=== PATIENT | female | born 1975 | race Caucasian/White ===

== ENCOUNTER 2019-04-16 21:09 | Emergency (ER) | payer SELFPAY ==
[~2019-04-16] VITALS: Ht 157.5 cm; Wt 73.9 kg
[2019-04-16 21:53] LABS: BASOPHILS % (AUTO) 0 % (0-10); EOSINOPHILS # (AUTO) 0.2 10^3/uL (0.0-0.3); EOSINOPHILS % (AUTO) 2 % (0-10); HEMATOCRIT 40 % (35-52); HEMOGLOBIN 13.2 G/DL (11.5-16.0); LYMPHOCYTES # (AUTO) 3.2 X 10^3 (1.0-4.0); LYMPHOCYTES % (AUTO) 33 % (12-44); MEAN CORPUSCULAR HEMOGLOBIN 28 PG (25-34); MEAN CORPUSCULAR HGB CONC 33 G/DL (32-36); MEAN CORPUSCULAR VOLUME 85 FL (80-99); MEAN PLATELET VOLUME 10.7 FL (7.4-10.4); MONOCYTES # (AUTO) 0.7 X 10^3 (0.0-1.0); MONOCYTES % (AUTO) 8 % (0-12); NEUTROPHILS # (AUTO) 5.6 X 10^3 (1.8-7.8); NEUTROPHILS % (AUTO) 58 % (42-75); PLATELET COUNT 317 10^3/uL (130-400); RED CELL DISTRIBUTION WIDTH 14.5 % (10.0-14.5); WHITE BLOOD COUNT 9.6 10^3/uL (4.3-11.0)
[2019-04-16 22:05] LABS: INR 0.9 (0.8-1.4); PROTHROMBIN TIME PATIENT 12.1 SEC (12.2-14.7)
[2019-04-16 22:06] LABS: ALANINE AMINOTRANSFERASE 13 U/L (0-55); ALBUMIN 4.4 GM/DL (3.2-4.5); ALKALINE PHOSPHATASE 52 U/L (40-136); BILIRUBIN,TOTAL 0.1 MG/DL (0.1-1.0); BUN/CREATININE RATIO 19; CALCIUM 10.5 MG/DL (8.5-10.1); CARBON DIOXIDE 20 MMOL/L (21-32); CHLORIDE 105 MMOL/L (98-107); CREATININE SERUM 0.84 MG/DL (0.60-1.30); GFR ESTIMATED > 60; GLUCOSE 92 MG/DL (70-105); MAGNESIUM 2.2 MG/DL (1.8-2.4); POTASSIUM 3.9 MMOL/L (3.6-5.0); SODIUM 139 MMOL/L (135-145); TOTAL PROTEIN 7.6 GM/DL (6.4-8.2)
[2019-04-16 22:13] LABS: BILIRUBIN,URINE NEGATIVE (NEGATIVE); CLARITY,URINE CLEAR; COLOR,URINE YELLOW; GLUCOSE, URINE (UA) NEGATIVE (NEGATIVE); KETONES,URINE NEGATIVE (NEGATIVE); LEUKOCYTE ESTERASE ,URINE NEGATIVE (NEGATIVE); NITRITE,URINE NEGATIVE (NEGATIVE); PH,URINE 7 (5-9); PROTEIN,URINE NEGATIVE (NEGATIVE); UROBILINOGEN,URINE NORMAL (NORMAL)
[2019-04-16 22:20] LABS: BACTERIA,URINE NEGATIVE /HPF
[2019-04-16 22:21] LABS: SQUAMOUS EPITHELIAL CELL,UR 0-2 /HPF
--- NOTE | 2019-04-16 22:23 | ED General ---
General Chief Complaint: Dizziness/Syncope Stated Complaint: DIZZY Nursing Triage Note: Pt amb to room #6 w/o difficulty. a&ox4. C/o "dizzy spells, LH, disorientation, and nausea. Pt reports she has been experiencing symptoms for approx 5 years but feels as though they are "slowly" progressing. Pt reports she has experienced approx 6-7 episodes throughout this day. Denies injury. Pt reports she is new to [facility] and is awaiting to establish primary care @ [facility] for mental health. Nursing Sepsis Screen: No Definite Risk Source of Information: Patient Exam Limitations: No Limitations History of Present Illness Date Seen by Provider: Apr 16, 2019 Time Seen by Provider: 21:43 Initial Comments 43 year old female who presents to the emergency room for dizzy spells for the past 5 years. She reports that today it has became so bad that she has "blacked out" for a few seconds. She is alert and oriented. Lalo SOB, Chest pain, na usea, or vomiting. Associated Systoms: Syncope Allergies and Home Medications Allergies Coded Allergies: No Known Drug Allergies (Unverified , 04/16/19) Patient Home Medication List Home Medication List Reviewed: Yes Review of Systems Review of Systems Constitutional: see HPI; No chills; dizziness; No fever All Other Systems Reviewed Negative Unless Noted: Yes Past Wnbbdlm-Anldtd-Wvzvjb Hx Past Med/Social Hx: Reviewed Nursing Past Med/Soc Hx Patient Social History Alcohol Use: Denies Use Recreational Drug Use: No Smoking Status: Never a Smoker Type Used: Cigarettes 2nd Hand Smoke Exposure: Yes Recent Foreign Travel: No Contact w/Someone Who Travel: No Recent Infectious Disease Expo: No Recent Hopitalizations: No Physical Abuse: No Sexual Abuse: No Seasonal Allergies Seasonal Allergies: No Past Medical History Surgeries: Yes Section Respiratory: No Cardiac: No Neurological: Yes ("Brain seizures") Gastrointestinal: No Musculoskeletal: No Endocrine: No HEENT: No Cancer: No Psychosocial: Yes ADD/ADHD, Anxiety, ODD, Bipolar, Personality Disorder, Depression Nursing Suicide Risk Notes: Pt reports on 04/15/19 she attempted to cut her wrists with a stick. Pt states, "as soon as I realized what I was doing and came to, I dropped the stick and broke it into pieces." Pt denies being suicidal or having suicidal thoughts. Pt states, "I don't want to hurt myself or anyone else." Integumentary: No Family Medical History Reviewed Nursing Family Hx Physical Exam Vital Signs Vital Signs - First Documented 04/16/19 21:15 Temp 97.8 Pulse 87 Resp 16 B/P (MAP) 119/77 (91) Pulse Ox 100 O2 Delivery Room Air Capillary Refill : Less Than 3 Seconds Height, Weight, BMI Height: 5'2.00" Weight: 163lbs. oz. 73.180774id; BMI Method:Stated General Appearance: No Apparent Distress, WD/WN HEENT: PERRL/EOMI, TMs Normal, Normal ENT Inspection, Pharynx Normal Neck: Full Range of Motion, Normal Inspection, Non Tender, Supple, Carotid Bruit Respiratory: Chest Non Tender, Lungs Clear, Normal Breath Sounds, No Accessory Muscle Use, No Respiratory Distress Cardiovascular: Regular Rate, Rhythm, No Edema, No Gallop, No JVD, No Murmur, Normal Peripheral Pulses Gastrointestinal: Normal Bowel Sounds, No Organomegaly, No Pulsatile Mass, Non Tender, Soft Neurologic/Psychiatric: Alert, Oriented x3, Normal Mood/Affect Skin: Normal Color, Warm/Dry Progress/Results/Core Measures Suspected Sepsis Recent Fever Within 48 Hours: No Infection Criteria Present: None New/Unexplained Altered Menta: No Sepsis Screen: No Definite Risk SIRS Temperature:97.8 Pulse: 87 Respiratory Rate: 16 Laboratory Tests 04/16/19 21:25: White Blood Count 9.6 Blood Pressure 119 /77 Mean: 91 Laboratory Tests 04/16/19 21:25: Creatinine 0.84, INR Comment 0.9, Platelet Count 317, Total Bilirubin 0.1 Results/Orders Lab Results My Orders Vital Signs/I&O Capillary Refill : Less Than 3 Seconds Blood Pressure Mean: 91 Departure Impression Primary Impression: Syncope Additional Impression: Vertigo Disposition: 01 HOME, SELF-CARE Condition: Stable/Unchanged Departure-Patient Inst. Decision time for Depature: 23:00 Referrals: [facility] (PCP/Family) Primary Care Physician Patient Instructions: Syncope (Fainting) (DC), Vertigo (a Type of Dizziness) (DC) Add. Discharge Instructions: You may use meclizine [id number] as directed by the bottle for further ago. Follow-up with your primary care provider as scheduled. Return back to the emergency room for worsening symptoms or concerns as needed. All discharge instructions reviewed with patient and/or family. Voiced understanding. MARICEL RHOADES Apr 16, 2019 22:23
[2019-04-16 22:25] LABS: TSH (THYROID ANALYZER) 1.44 UIU/ML (0.35-4.94)
[2019-04-16 22:42] VITALS: BP_SYST 115; BP_SYST 118; BP_SYST 124; BP_DIAS 77; BP_DIAS 88; BP_DIAS 89
[2019-04-16] MEDS ORDERED: MECLIZINE 25 MG (ANTIVERT) TAB PO ONE (23:00)
[2019-04-16 23:05] VITALS: BP 116/85
--- NOTE | 2019-04-17 05:51 | Diagnostic Imaging Report ---
PROCEDURE: CT head without contrast. TECHNIQUE: Multiple contiguous axial images were obtained through the brain without the use of intravenous contrast. Auto Exposure Controls were utilized during the CT exam to meet ALARA standards for radiation dose reduction. INDICATION: Dizziness. COMPARISON: None. FINDINGS: The ventricles and cortical sulci are age-appropriate. There is no midline shift or mass-effect. No acute intracranial hemorrhage is seen. There is no CT evidence of acute territorial ischemia. No focal masses or collections are present. The calvarium is intact. The visualized paranasal sinuses are clear. IMPRESSION: No hemorrhage or focal intra-axial mass. No CT evidence of large acute territorial ischemia. Agree with overnight report. Dictated by: Dictated on workstation # [id number]
== END 2019-04-16 23:05 | disposition home or self-care (01) ==
LOC: ER 21:11
DX: R55 Syncope and collapse (principal); F90.9 Attention-deficit hyperactivity disorder, unspecified type; F41.9 Anxiety disorder, unspecified; F31.9 Bipolar disorder, unspecified; F91.3 Oppositional defiant disorder; F60.9 Personality disorder, unspecified; Z77.22 Contact with and (suspected) exposure to environmental tobacco smoke (acute) (chronic)
CPT/HCPCS: 36415; 70450; 80053; 81000; 83735; 84443; 84703; 85025; 85610; 85730; 93005; 93041

== ENCOUNTER 2019-07-13 18:19 | Emergency (ER) | payer SELFPAY ==
[~2019-07-13] VITALS: Ht 157 cm; Wt 85.0 kg
[2019-07-13] MEDS ORDERED: FLUT9.9S NS (18:52)
[2019-07-13] MEDS ORDERED: LAMO1TAB2 PO (18:52)
[2019-07-13] MEDS ORDERED: SERT100T PO (18:52)
[2019-07-13 19:31] VITALS: BP_SYST 114; BP_SYST 119; BP_SYST 120; BP_DIAS 74; BP_DIAS 77; BP_DIAS 89
[2019-07-13 19:37] LABS: BILIRUBIN,URINE NEGATIVE (NEGATIVE); CLARITY,URINE CLEAR; COLOR,URINE YELLOW; GLUCOSE, URINE (UA) NEGATIVE (NEGATIVE); KETONES,URINE NEGATIVE (NEGATIVE); LEUKOCYTE ESTERASE ,URINE NEGATIVE (NEGATIVE); NITRITE,URINE NEGATIVE (NEGATIVE); PH,URINE 6 (5-9); PROTEIN,URINE NEGATIVE (NEGATIVE)
[2019-07-13 19:39] LABS: BASOPHILS % (AUTO) 0 % (0-10); EOSINOPHILS # (AUTO) 0.1 10^3/uL (0.0-0.3); EOSINOPHILS % (AUTO) 1 % (0-10); HEMATOCRIT 40 % (35-52); HEMOGLOBIN 12.9 G/DL (11.5-16.0); LYMPHOCYTES # (AUTO) 1.5 X 10^3 (1.0-4.0); LYMPHOCYTES % (AUTO) 19 % (12-44); MEAN CORPUSCULAR HEMOGLOBIN 28 PG (25-34); MEAN CORPUSCULAR HGB CONC 32 G/DL (32-36); MEAN CORPUSCULAR VOLUME 85 FL (80-99); MEAN PLATELET VOLUME 10.6 FL (7.4-10.4); MONOCYTES # (AUTO) 0.5 X 10^3 (0.0-1.0); MONOCYTES % (AUTO) 6 % (0-12); NEUTROPHILS # (AUTO) 5.9 X 10^3 (1.8-7.8); NEUTROPHILS % (AUTO) 73 % (42-75); PLATELET COUNT 315 10^3/uL (130-400); RED CELL DISTRIBUTION WIDTH 14.8 % (10.0-14.5); WHITE BLOOD COUNT 8.1 10^3/uL (4.3-11.0)
[2019-07-13 19:50] LABS: INR 0.9 (0.8-1.4); PROTHROMBIN TIME PATIENT 12.2 SEC (12.2-14.7)
[2019-07-13 20:03] LABS: BACTERIA,URINE TRACE /HPF; RBC,URINE 0-2 /HPF; WBC,URINE 0-2 /HPF
[2019-07-13 20:07] LABS: ALANINE AMINOTRANSFERASE 10 U/L (0-55); ALBUMIN 4.2 GM/DL (3.2-4.5); ALKALINE PHOSPHATASE 55 U/L (40-136); BILIRUBIN,TOTAL 0.2 MG/DL (0.1-1.0); BUN/CREATININE RATIO 16; CALCIUM 9.7 MG/DL (8.5-10.1); CARBON DIOXIDE 21 MMOL/L (21-32); CHLORIDE 106 MMOL/L (98-107); GFR ESTIMATED > 60; GLUCOSE 132 MG/DL (70-105); MAGNESIUM 1.8 MG/DL (1.6-2.4); POTASSIUM 3.9 MMOL/L (3.6-5.0); SODIUM 141 MMOL/L (135-145); TOTAL PROTEIN 7.2 GM/DL (6.4-8.2)
--- NOTE | 2019-07-13 20:10 | Diagnostic Imaging Report ---
EXAMINATION: CT head and face without contrast. TECHNIQUE: Multiple contiguous axial images were obtained through the face and brain without the use of intravenous contrast. All CT scans use one or more of the following dose optimizing techniques: automated exposure control, MA and/or KvP adjustment based on a patient size and exam type, or iterative reconstruction. HISTORY: Dizziness COMPARISON: 04/16/2019 FINDINGS: The butt-white matter differentiation is normal. No mass effect or midline shift. The ventricles are normal in size and configuration. Basilar cisterns are patent. There are no intra- or extra-axial fluid collections. There is no intracranial hemorrhage. The orbits are normal. Paranasal sinuses are normal. Mastoid air cells are clear. No soft tissue abnormality is seen. No osseus lesions or fractures are seen. No fracture is seen in the face. The nasal bones are normal. Mandible and maxillae are normal. Zygomatic arches are normal. Pterygoid plates are normal. No soft tissue abnormality is seen. IMPRESSION: 1. No acute intracranial abnormality. 2. No fracture in the face. Dictated by: Dictated on workstation # [id number]
--- NOTE | 2019-07-13 20:14 | Diagnostic Imaging Report ---
EXAMINATION: Chest 2 view HISTORY: Dizziness FINDINGS: No comparison available. The lungs are clear. No edema. No pneumonia. No pleural effusion. No pneumothorax. Heart is normal in size. IMPRESSION: 1. Clear lungs. Dictated by: Dictated on workstation # [id number]
[2019-07-13 20:15] LABS: AMPHETAMINE SCREEN, URINE NEGATIVE (NEGATIVE); BARBITURATE SCREEN URINE NEGATIVE (NEGATIVE); BENZODIAZEPINES SCREEN URINE NEGATIVE (NEGATIVE); CANNABINOID SCREEN, URINE NEGATIVE (NEGATIVE); COCAINE SCREEN URINE NEGATIVE (NEGATIVE); METHADONE STAT NEGATIVE (NEGATIVE); METHAMPHETAMINE SCREEN URINE S NEGATIVE (NEGATIVE); OPIATE SCREEN URINE NEGATIVE (NEGATIVE); OXYCODONE STAT NEGATIVE (NEGATIVE); PROPOXYPHENE STAT NEGATIVE (NEGATIVE); TRICYCLIC ANTIDEPRESSANTS SCRE NEGATIVE (NEGATIVE)
[2019-07-13 20:29] LABS: TSH (THYROID ANALYZER) 1.26 UIU/ML (0.35-4.94)
[2019-07-13] MEDS ORDERED: SCOPOLAMINE 1.5 MG (TRANSDERM-SCOP) PATCH TD ONE (20:45)
[2019-07-13] MEDS ORDERED: AUGMENTIN 875 MG TAB (AMOXICILLIN/CLAVULANATE) PO SCH (20:45)
[2019-07-13] MEDS ORDERED: MECLIZINE 25 MG (ANTIVERT) TAB PO ONE (20:45)
[2019-07-13] MEDS ORDERED: AZEL137S11 NS (20:45)
[2019-07-13] MEDS ORDERED: METH4TAB PO (20:45)
[2019-07-13] MEDS ORDERED: MECL-106 PO (20:45)
[2019-07-13] MEDS ORDERED: AMOX-358 PO (20:45)
[2019-07-13] MEDS ORDERED: SCOP1PAT11 TD (20:45)
--- NOTE | 2019-07-13 20:45 | ED General ---
General Chief Complaint: Dizziness/Syncope Stated Complaint: DIZZINESS Nursing Triage Note: PT CO OF DIZZINESS STATES STARTED AT APPROX 1745 THIS EVENING. PT WAS AT WORK WHEN STARTED. 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 SHE STATES SHE HAS IT SEVERAL TIMES A MONTH, AND THE LAST TIME WAS LAST WEEK. WO RK UP'S IN THE PAST HAVE ALL BEEN NEGATIVE. STATES IT IS A SPINNING SENSATION AND SHE FEELS OFF BALANCE AND WILL HAVE DIFFICULTY WALKING AT TIMES DUE TO DIZZINESS/FEELING OFF BALANCE. NO HEADACHE NO VISION CHANGES, STATES SHE IS SUPPOSED TO WEAR GLASSES ALL THE TIME, BUT DOES NOT NO URI SYMPTOMS NO FEVER OR RECENT ILLNESS NO NAUSEA/VOMITING. STATES SHE DID EAT TODAY. NO PARESTHESIAS OR MOTOR DEFICITS NO CHEST PAIN, SHORTNESS OF BREATH OR PALPITATIONS NO SWEATS STATES SYMPTOMS ARE GONE NOW STATES SYMPTOMS USUALLY DO NOT LAST FOR VERY LONG, AND GO AWAY ON THEIR OWN AFTER AWHILE STATES SHE SAW PEDRO SO AT [facility] A FEW DAYS AGO FOR ROUTINE EXAM AND DID DISCUSS THIS PROBLEM. PT STATES THAT ON AIR ANNOUNCER IS IN PROCESS OF ORDERING AN MRI, BUT "FILLING OUT PAPER WORK FOR FINANCIAL ASSISTANCE" STATES SHE WAS TOLD AT THAT VISIT THAT SHE HAD FLUID IN HER EARS. PT HAS USED FLONASE NASAL SPRAY IN THE PAST FOR THIS PROBLEM, BUT HAS NOT BEEN USING IT. NO NEW RX'S GIVEN. NO NEW MEDICATIONS OR DOSE CHANGES PT TAKES LAMICTAL AND ZOLOFT FOR PSYCH ISSUES--DEPRESSION, "MOOD SWINGS" "I'M CRAZY" "I HAVE EXPLOSIVE ISSUES" "I HAVE TROUBLE WITH ANGER ISSUES" PCP: [facility], PEDRO SO Allergies and Home Medications Allergies Coded Allergies: No Known Drug Allergies (Unverified , 04/16/19) Home Medications Amoxicillin/Potassium Clav 1 Each Tablet, 1 EACH PO BID Prescribed by: LULU FRY on 07/13/192044 Azelastine HCl 137 Mcg/0.137 Ml Florence.pump, 137 MCG NS BID Prescribed by: LULU FRY on 07/13/192044 Fluticasone Propionate 9.9 Ml Florence.susp, Unknown Dose NS DAILY, (Reported) 1 SPRAY EACH NARE DAILY Meclizine HCl 25 Mg Tablet, 25-50 MG PO Q6H Prescribed by: LULU FRY on 07/13/192044 Methylprednisolone 4 Mg Tab.ds.pk, 4 MG PO UD Prescribed by: LULU FRY on 07/13/192044 Scopolamine 1 Each Patch.td72, 1 EACH TD Q72 HOURS Prescribed by: LULU FRY on 07/13/192044 Sertraline HCl 100 Mg Tablet, 100 MG PO DAILY, (Reported) Patient Home Medication List Home Medication List Reviewed: Yes Review of Systems Review of Systems Constitutional: see HPI; No chills, No diaphoresis; dizziness; No fever, No malaise, No weakness EENTM: No ear discharge, No hearing loss, No ear pain, No blurred vision, No eye pain, No nose congestion, No throat pain Respiratory: no symptoms reported Cardiovascular: no symptoms reported; No chest pain, No palpitations, No syncop e Gastrointestinal: no symptoms reported; No nausea, No vomiting Genitourinary: no symptoms reported : No LMP: Jun 10, 2019 (PERIODS IRREGULAR. HAS HAD BTL) Musculoskeletal: no symptoms reported Skin: no symptoms reported Psychiatric/Neurological: See HPI (NO SYMPTOMS TODAY); Denies Headache, Denies Numbness, Denies Paresthesia, Denies Seizure, Denies Tingling, Denies Tremors, Denies Weakness Hematologic/Lymphatic: No Symptoms Reported Immunological/Allergic: no symptoms reported Past Umoayjn-Fsgvyx-Cmswfz Hx Past Med/Social Hx: Reviewed and Corrections made Patient Social History Alcohol Use: Denies Use Recreational Drug Use: No Smoking Status: Current Everyday Smoker (1 PPD) Type Used: Cigarettes (1 PPD) 2nd Hand Smoke Exposure: Yes Recent Foreign Travel: No Contact w/Someone Who Travel: No Recent Infectious Disease Expo: No Recent Hopitalizations: No Physical Abuse: No Sexual Abuse: No Seasonal Allergies Seasonal Allergies: No Past Medical History Surgeries: Yes ( X 3) Section, Tubal Ligation Respiratory: No Cardiac: No Neurological: Yes Vertigo : No (UNKNOWN) Reproductive Disorders: Yes Female Reproductive Disorders: Menstrual Problems Genitourinary: No Gastrointestinal: No Musculoskeletal: No Endocrine: No HEENT: No Cancer: No Psychosocial: Yes ("MOOD SWINGS" " EXPLOSIVE ISSUES" "ANGER ISSUES" "I'M CRAZY" --ALL PER PT) ADD/ADHD, Anxiety, ODD, Bipolar, Personality Disorder, Violent Behavior, Depression Integumentary: No Physical Exam Vital Signs Vital Signs - First Documented 07/13/19 07/13/19 18:40 22:20 Temp 36.8 Pulse 85 Resp 18 B/P (MAP) 107/73 (84) Pulse Ox 96 O2 Delivery Room Air Capillary Refill : Less Than 3 Seconds Height, Weight, BMI Height: 5'2.00" Weight: 163lbs. oz. 73.857902bz; 34.00 BMI Method:Stated General Appearance: No Apparent Distress, WD/WN, Other (WALKS UPRIGHT AND MOVES WITHOUT DIFFICULTY) HEENT: PERRL/EOMI, Other (TM'S INFLAMED WITH EFFUSIONS BILATERALLY--LEFT > RIGHT; MILD CLEAR POST NASAL DRAINAGE. NO SINUS TENDERNESS. ) Neck: Full Range of Motion, Normal Inspection, Non Tender, Supple Respiratory: Normal Breath Sounds, No Accessory Muscle Use, No Respiratory Distress Cardiovascular: Regular Rate, Rhythm, No Edema, No Gallop, No JVD, No Murmur, Normal Peripheral Pulses Gastrointestinal: Normal Bowel Sounds, No Organomegaly, No Pulsatile Mass, Non Tender, Soft Back: Normal Inspection, No CVA Tenderness, No Vertebral Tenderness Extremity: Normal Capillary Refill, Normal Inspection, Normal Range of Motion, Non Tender, No Calf Tenderness, No Pedal Edema Neurologic/Psychiatric: Alert, Oriented x3, No Motor/Sensory Deficits, Normal 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, 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 Skin: Normal Color, Warm/Dry Progress/Results/Core Measures Suspected Sepsis Recent Fever Within 48 Hours: No Infection Criteria Present: None New/Unexplained Altered Menta: No Sepsis Screen: No Definite Risk SIRS Temperature: Pulse: 98 Respiratory Rate: 18 Laboratory Tests 07/13/19 19:15: White Blood Count 8.1 Blood Pressure 120 /89 Mean: 99 Laboratory Tests 07/13/19 19:15: Creatinine 0.80, INR Comment 0.9, Platelet Count 315, Total Bilirubin 0.2 Results/Orders Lab Results Laboratory Tests Test 07/13/19 19:15 07/13/19 19:27 Range/Units White Blood Count 8.1 4.3-11.0 10^3/uL Red Blood Count 4.67 4.35-5.85 10^6/uL Hemoglobin 12.9 11.5-16.0 G/DL Hematocrit 40 35-52 % Mean Corpuscular Volume 85 80-99 FL Mean Corpuscular Hemoglobin 28 25-34 PG Mean Corpuscular Hemoglobin Concent 32 32-36 G/DL Red Cell Distribution Width 14.8 H 10.0-14.5 % Platelet Count 315 130-400 10^3/uL Mean Platelet Volume 10.6 H 7.4-10.4 FL Neutrophils (%) (Auto) 73 42-75 % Lymphocytes (%) (Auto) 19 12-44 % Monocytes (%) (Auto) 6 0-12 % Eosinophils (%) (Auto) 1 0-10 % Basophils (%) (Auto) 0 0-10 % Neutrophils # (Auto) 5.9 1.8-7.8 X 10^3 Lymphocytes # (Auto) 1.5 1.0-4.0 X 10^3 Monocytes # (Auto) 0.5 0.0-1.0 X 10^3 Eosinophils # (Auto) 0.1 0.0-0.3 10^3/uL Basophils # (Auto) 0.0 0.0-0.1 10^3/uL Prothrombin Time 12.2 12.2-14.7 SEC INR Comment 0.9 0.8-1.4 Activated Partial Thromboplast Time 31 24-35 SEC Sodium Level 141 135-145 MMOL/L Potassium Level 3.9 3.6-5.0 MMOL/L Chloride Level 106 98-107 MMOL/L Carbon Dioxide Level 21 21-32 MMOL/L Anion Gap 14 5-14 MMOL/L Blood Urea Nitrogen 13 7-18 MG/DL Creatinine 0.80 0.60-1.30 MG/DL Estimat Glomerular Filtration Rate > 60 BUN/Creatinine Ratio 16 Glucose Level 132 H 70-105 MG/DL Calcium Level 9.7 8.5-10.1 MG/DL Corrected Calcium 9.5 8.5-10.1 MG/DL Magnesium Level 1.8 1.6-2.4 MG/DL Total Bilirubin 0.2 0.1-1.0 MG/DL Aspartate Amino Transf (AST/SGOT) 13 5-34 U/L Alanine Aminotransferase (ALT/SGPT) 10 0-55 U/L Alkaline Phosphatase 55 40-136 U/L Troponin I < 0.028 <0.028 NG/ML Total Protein 7.2 6.4-8.2 GM/DL Albumin 4.2 3.2-4.5 GM/DL TSH [place] Testing 1.26 0.35-4.94 UIU/ML Serum Test, Qualitative NEGATIVE NEGATIVE Serum Alcohol < 10 <10 MG/DL Urine Color YELLOW Urine Clarity CLEAR Urine pH 6 5-9 Urine Specific [place] 1.015 L 1.016-1.022 Urine Protein NEGATIVE NEGATIVE Urine Glucose (UA) NEGATIVE NEGATIVE Urine Ketones NEGATIVE NEGATIVE Urine Nitrite NEGATIVE NEGATIVE Urine Bilirubin NEGATIVE NEGATIVE Urine Urobilinogen NORMAL NORMAL MG/DL Urine Leukocyte Esterase NEGATIVE NEGATIVE Urine RBC (Auto) NEGATIVE NEGATIVE Urine RBC 0-2 /HPF Urine WBC 0-2 /HPF Urine Squamous Epithelial Cells 2-5 /HPF Urine Crystals NONE /LPF Urine Bacteria TRACE /HPF Urine Casts NONE /LPF Urine Mucus NEGATIVE /LPF Urine Culture Indicated NO Urine Opiates Screen NEGATIVE NEGATIVE Urine Oxycodone Screen NEGATIVE NEGATIVE Urine Methadone Screen NEGATIVE NEGATIVE Urine Propoxyphene Screen NEGATIVE NEGATIVE Urine Barbiturates Screen NEGATIVE NEGATIVE Ur Tricyclic Antidepressants Screen NEGATIVE NEGATIVE Urine Phencyclidine Screen NEGATIVE NEGATIVE Urine Amphetamines Screen NEGATIVE NEGATIVE Urine Methamphetamines Screen NEGATIVE NEGATIVE Urine Benzodiazepines Screen NEGATIVE NEGATIVE Urine Cocaine Screen NEGATIVE NEGATIVE Urine Cannabinoids Screen NEGATIVE NEGATIVE My Orders Orders - LULU FRY DO Ed Iv/Invasive Line Start (07/13/19 19:17) Ekg Tracing (07/13/19:17) Monitor-Rhythm Ecg Trace Only (07/13/19 19:17) Orthostatic Vital Signs (Adult (07/13/19 19:17) Cbc With Automated Diff (07/13/19 19:17) Comprehensive Metabolic Panel (07/13/19 19:17) Magnesium (07/13/19 19:17) Protime With Inr (07/13/19:17) Partial Thromboplastin Time (07/13/19 19:17) Ua Culture If Indicated (07/13/19 19:17) Troponin I (07/13/19 19:17) Alcohol (07/13/19 19:44) Drug Screen Stat (Urine) (07/13/19 19:44) Hcg,Qualitative Serum (07/13/19 19:44) Thyroid Analyzer (07/13/19 19:44) Chest Pa/Lat (2 View) (07/13/19 19:44) Urine Bedside (07/13/19 19:53) Ct Head/Maxillofacial Wo (07/13/19 19:44) Scopolamine Patch (Transderm-Scop Patch) (07/13/19 20:45) Meclizine Tablet (Antivert Tablet) (07/13/19 20:45) Amoxicillin/Clavulanate Tablet (Augmenti (07/13/19 20:45) Vital Signs/I&O Capillary Refill : Less Than 3 Seconds Blood Pressure Mean: 99 POS Progress Note : Progress Note UNEVENTFUL ER STAY ECG Initial ECG Impression Date: Jul 13, 2019 Initial ECG Impression Time: 19:33 Initial ECG Rate: 81 Initial ECG Rhythm: Normal Sinus Initial ECG Impression: Normal Initial ECG Comparisson: No Previous ECG Available Diagnostic Imaging Comments CXR--NO ACUTE PROCESS, PER RADIOLOGIST REPORT AT 2020 CT HEAD--NO ACUTE PROCESS, PER RADIOLOGIST REPORT AT 2020 Reviewed: Reviewed by Me Departure Impression Primary Impression: Vertigo Additional Impression: Bilateral otitis media with effusion Disposition: HOME, SELF-CARE Condition: Improved Departure-Patient Inst. Referrals: [facility]/ (PCP) Primary Care Physician JESSICA SO APRN (Family) Primary Care Physician Patient Instructions: Vertigo (a Type of Dizziness) (DC), Serous Otitis Media (DC), Ear Infections (Otitis Media) (DC) Add. Discharge Instructions: SLOW POSITION CHANGES LEAVE SCOPOLAMINE PATCH IN PLACE FOR 3 DAYS, THEN REPLACE WITH NEW PATCH USE FLONASE DAILY FOLLOW UP WITH [facility] THIS WEEK FOR FURTHER CARE All discharge instructions reviewed with patient and/or family. Voiced und erstanding. Scripts Scopolamine (Transderm-Scop) 1 Each Patch.td72 1 EACH TD Q72 HOURS for Dizziness, #3 PATCH Prov: LULU FRY DO 07/13/19 Meclizine HCl (Meclizine HCl) 25 Mg Tablet 25-50 MG PO Q6H for Dizziness, #30 TAB Prov: ANGDENEENA K DO 07/13/19 Methylprednisolone (Medrol) 4 Mg Tab.ds.pk 4 MG PO UD, #1 PKG Prov: ANGDENEENA K DO 07/13/19 Azelastine HCl (Azelastine HCl) 137 Mcg/0.137 Ml Florence.pump 137 MCG NS BID, #1 UNIT Prov: LULU FRY DO 07/13/19 Amoxicillin/Potassium Clav (Augmentin 875-125 Tablet) 1 Each Tablet 1 EACH PO BID for INFECTION, #20 TAB Prov: LULU FRY DO 07/13/19 LULU FRY DO Jul 13, 2019 20:45 POS
[2019-07-13 22:20] VITALS: BP 99/74
== END 2019-07-13 22:25 | disposition home or self-care (01) ==
LOC: EDUNIT# 18:19 → ER 18:20
DX: R42 Dizziness and giddiness (principal); H65.93 Unspecified nonsuppurative otitis media, bilateral; F41.9 Anxiety disorder, unspecified; F60.9 Personality disorder, unspecified; F91.3 Oppositional defiant disorder; F90.9 Attention-deficit hyperactivity disorder, unspecified type; F31.9 Bipolar disorder, unspecified; F17.210 Nicotine dependence, cigarettes, uncomplicated; Z98.51 Tubal ligation status; Z79.51 Long term (current) use of inhaled steroids; Z79.52 Long term (current) use of systemic steroids
CPT/HCPCS: 36415; 70450; 70486; 71046; 80053; 80306; 80320; 81000; 83735; 84443; 84484; 84703; 85025; 85610; 85730; 93005; 93041

== ENCOUNTER 2019-11-03 08:01 | Emergency (ER) | payer SELFPAY ==
[~2019-11-03] VITALS: Ht 157.4 cm; Wt 89.1 kg
[~2019-11-03 08:01] MED LIST: AMOX-358 PO; AZEL137S11 NS; FLUT9.9S NS; LAMO1TAB2 PO; MECL-149 PO; METH4TAB PO; SCOP1PAT11 TD; SERT100T PO
[2019-11-03 08:27] LABS: BILIRUBIN,URINE NEGATIVE (NEGATIVE); CLARITY,URINE CLOUDY; COLOR,URINE YELLOW; GLUCOSE, URINE (UA) NEGATIVE (NEGATIVE); KETONES,URINE NEGATIVE (NEGATIVE); LEUKOCYTE ESTERASE ,URINE 2+ (NEGATIVE); NITRITE,URINE NEGATIVE (NEGATIVE); PROTEIN,URINE 2+ (NEGATIVE)
[2019-11-03 08:40] LABS: BACTERIA,URINE FEW /HPF; RBC,URINE 25-50 /HPF; WBC,URINE 50-100 /HPF
[2019-11-03] MEDS ORDERED: NITR-65 PO (08:45)
[2019-11-03] MEDS ORDERED: PHEN-640 PO (08:45)
--- NOTE | 2019-11-03 08:46 | ED GU-Female ---
General Chief Complaint: - Urinary Stated Complaint: CRAMPING;BURNING/ITCHING WITH URINATION Nursing Triage Note: AMB TO ED C/O LOW ABD CRAMPING JUST FINISHED HER PEROID. VAG ITCHING, Nursing Sepsis Screen: No Definite Risk Source: patient History of Present Illness Date Seen by Provider: Nov 03, 2019 Time Seen by Provider: 08:20 Initial Comments PT ARRIVES VIA POV FROM HOME C/O UTI SYMPTOMS FOR A WEEK C/O PAINFUL URINATION C/O VAGINAL ITCHING C/O PAIN/BURNING TO EXTERNAL GENITAL AREA. NO FEVER NO ABDOMINAL PAIN NO NAUSEA/VOMITING/DIARRHEA LMP--ENDED A WEEK AGO. S/P BTL PCP: NIXON, PEDRO SO Allergies and Home Medications Allergies Coded Allergies: No Known Drug Allergies (Unverified , 04/16/19) Home Medications Azelastine HCl 137 Mcg/0.137 Ml [place].pump, 137 MCG NS BID Prescribed by: LULU FRY on 07/13/192044 Nitrofurantoin Monohyd/M-Cryst 100 Mg Capsule, 100 MG PO BID Prescribed by: LULU FRY on 11/03/19844 Phenazopyridine HCl 200 Mg Tablet, 1 TAB PO TID Prescribed by: LULU FRY on 11/03/19844 Sertraline HCl 100 Mg Tablet, 100 MG PO DAILY, (Reported) Patient Home Medication List Home Medication List Reviewed: Yes Review of Systems Review of Systems Constitutional: no symptoms reported Respiratory: no symptoms reported Cardiovascular: no symptoms reported Gastrointestinal: no symptoms reported Genitourinary: see HPI, burning; denies discharge; dysuria; denies flank pain; pain LMP: Oct 20, 2019 Musculoskeletal: no symptoms reported; No back pain Skin: no symptoms reported Psychiatric/Neurological: No Symptoms Reported Endocrine: No Symptoms Reported Hematologic/Lymphatic: No Symptoms Reported Past Mvdzugl-Jrzthj-Bjuvwd Hx Past Med/Social Hx: Reviewed and Corrections made Patient Social History Alcohol Use: Denies Use Recreational Drug Use: No Smoking Status: Current Everyday Smoker Type Used: Cigarettes 2nd Hand Smoke Exposure: Yes Recent Foreign Travel: No Contact w/Someone Who Travel: No Recent Infectious Disease Expo: No Recent Hopitalizations: No Seasonal Allergies Seasonal Allergies: No Past Medical History Surgeries: Yes ( X 3) Section, Tubal Ligation Respiratory: No Cardiac: No Neurological: Yes Vertigo : No Reproductive Disorders: Yes Female Reproductive Disorders: Menstrual Problems [employer]TER History: Tubal Ligation Genitourinary: No Gastrointestinal: No Musculoskeletal: No Endocrine: No HEENT: No Cancer: No Psychosocial: Yes ("MOOD SWINGS" " EXPLOSIVE ISSUES" "ANGER ISSUES" "I'M CRAZY" --ALL PER PT) ADD/ADHD, Anxiety, ODD, Bipolar, Personality Disorder, Violent Behavior, Depression Integumentary: No Physical Exam Vital Signs Vital Signs - First Documented 11/03/19 08:05 Temp 35.7 Pulse 112 Resp 18 B/P (MAP) 121/79 (93) Pulse Ox 99 Capillary Refill : Less Than 3 Seconds Height, Weight, BMI Height: 5'2.00" Weight: 163lbs. oz. [id number]; 35.00 BMI Method:Stated General Appearance: no apparent distress, obese, other (WALKS UPRIGHT AND MOVES WITHOUT DIFFICULTY. SPEECH RAPID AND SOMEWHAT MUMBLED,VERY TALKATIVE, SMILING. DOES NOT APPEAR TO BE IN ANY DISCOMFORT OR DISTRESS) HEENT: other (POOR DENTITION) Cardiovascular: regular rate, rhythm, no murmur Respiratory: normal breath sounds, no respiratory distress, no accessory muscle use Gastrointestinal: non tender, soft, no organomegaly Back: normal inspection, no CVA tenderness Extremities: normal inspection Neurologic/Psychiatric: no motor/sensory deficits, alert, normal mood/affect, oriented x 3 Skin: normal color, warm/dry, tattoos/piercings Progress/Results/Core Measures Suspected Sepsis Recent Fever Within 48 Hours: No Infection Criteria Present: None New/Unexplained Altered Menta: No Sepsis Screen: No Definite Risk SIRS Temperature: Pulse: 112 Respiratory Rate: 18 Blood Pressure 121 /79 Mean: 93 Results/Orders Lab Results Laboratory Tests Test 11/03/19 08:20 Range/Units Urine Color YELLOW Urine Clarity CLOUDY Urine pH 6.0 5-9 Urine Specific [place] 1.025 H 1.016-1.022 Urine Protein 2+ H NEGATIVE Urine Glucose (UA) NEGATIVE NEGATIVE Urine Ketones NEGATIVE NEGATIVE Urine Nitrite NEGATIVE NEGATIVE Urine Bilirubin NEGATIVE NEGATIVE Urine Urobilinogen 0.2 < = 1.0 MG/DL Urine Leukocyte Esterase 2+ H NEGATIVE Urine RBC (Auto) 3+ H NEGATIVE Urine RBC 25-50 H /HPF Urine WBC 50-100 H /HPF Urine Squamous Epithelial Cells 2-5 /HPF Urine Crystals NONE /LPF Urine Bacteria FEW H /HPF Urine Casts NONE /LPF Urine Mucus NEGATIVE /LPF Urine Culture Indicated YES My Orders Orders - LULU FRY DO Urine Bedside (11/03/19 08:16) Ua Culture If Indicated (11/03/19 08:16) Urine Culture (11/03/19 08:20) Drug Screen Stat (Urine) (11/03/19 08:43) Vital Signs/I&O 11/03/19 08:05 Temp 35.7 Pulse 112 Resp 18 B/P (MAP) 121/79 (93) Pulse Ox 99 Capillary Refill : Less Than 3 Seconds Blood Pressure Mean: 93 Departure Impression Primary Impression: Urinary tract infection Disposition: 01 HOME, SELF-CARE Condition: Stable Departure-Patient Inst. Referrals: JESSICA SO APRN (PCP/Family) Primary Care Physician Patient Instructions: Urinary Tract Infection, Adult (DC) Add. Discharge Instructions: LOTS OF CLEAR LIQUIDS--NO COFFEE, POP OR TEA TYLENOL 1 GRAM/ MOTRIN 800 MG 4 TIMES A DAY FOR PAIN OR FEVER FOLLOW UP WITH [facility] IN 1 WEEK FOR RECHECK All discharge instructions reviewed with patient and/or family. Voiced understanding. Scripts Phenazopyridine HCl (Pyridium) 200 Mg Tablet 1 TAB PO TID for BLADDER DISCOMFORT, #15 TAB Prov: LULU FRY DO 11/03/19 Nitrofurantoin Monohyd/M-Cryst (Macrobid 100 mg Capsule) 100 Mg Capsule 100 MG PO BID, #20 CAP Prov: LULU FRY DO 11/03/19 LULU FRY DO Nov 03, 2019 08:45
[2019-11-03 08:52] VITALS: BP 121/79
[2019-11-03 09:01] LABS: AMPHETAMINE SCREEN, URINE NEGATIVE (NEGATIVE); BARBITURATE SCREEN URINE NEGATIVE (NEGATIVE); BENZODIAZEPINES SCREEN URINE NEGATIVE (NEGATIVE); CANNABINOID SCREEN, URINE NEGATIVE (NEGATIVE); COCAINE SCREEN URINE NEGATIVE (NEGATIVE); METHADONE STAT NEGATIVE (NEGATIVE); METHAMPHETAMINE SCREEN URINE S NEGATIVE (NEGATIVE); OPIATE SCREEN URINE NEGATIVE (NEGATIVE); OXYCODONE STAT NEGATIVE (NEGATIVE); PROPOXYPHENE STAT NEGATIVE (NEGATIVE); TRICYCLIC ANTIDEPRESSANTS SCRE NEGATIVE (NEGATIVE)
== END 2019-11-03 08:52 | disposition home or self-care (01) ==
LOC: EDUNIT# 08:01 → ER 08:03
DX: N39.0 Urinary tract infection, site not specified (principal); F17.210 Nicotine dependence, cigarettes, uncomplicated; F41.9 Anxiety disorder, unspecified; F31.9 Bipolar disorder, unspecified; F90.9 Attention-deficit hyperactivity disorder, unspecified type; F91.3 Oppositional defiant disorder
CPT/HCPCS: 80306; 81000; 84703; 87077; 87088; 99282

== ENCOUNTER 2019-12-06 16:06 | Emergency (ER) | payer SELFPAY ==
[~2019-12-06] VITALS: Ht 157 cm; Wt 113.0 kg
[~2019-12-06 16:06] MED LIST changes: +NITR-65 PO; +PHEN-640 PO
--- OUTSIDE RECORDS SUMMARY | 2019-12-06 16:12 | XMS REPORT | Continuity of Care Document ---
Author Organization Unknown Address Unknown Phone Unavailable Allergies Active Description Code Type Severity Reaction Onset Reported/Identified Relationship to Patient Clinical Status Yes No Known Drug Allergies [id number] Drug Allergy Unknown N/A 04/16/2019 Medications There is no data. Problems Date Dx Coded Attending Type Code Diagnosis Diagnosed By 04/16/2019 MARICEL RHOADES Ot F31.9 BIPOLAR DISORDER, UNSPECIFIED 04/16/2019 MARICEL RHOADES Ot F41.9 ANXIETY DISORDER, UNSPECIFIED 04/16/2019 MARICEL RHOADES Ot F60.9 PERSONALITY DISORDER, UNSPECIFIED 04/16/2019 MARICEL RHOADES Ot F90.9 ATTENTION-DEFICIT HYPERACTIVITY DISORDER 04/16/2019 BERNREY CHEIS Ot F91.3 OPPOSITIONAL DEFIANT DISORDER 04/16/2019 BERNREY CHEIS Ot R42 DIZZINESS AND GIDDINESS 04/16/2019 BERNOTREYIS Ot R55 SYNCOPE AND COLLAPSE 04/16/2019 BERNREY CHEIS Ot Z77.22 CNTCT W AND EXPSR TO ENVIRON TOBACCO SMO 04/24/2019 MARICEL RHOADES Ot F31.9 BIPOLAR DISORDER, UNSPECIFIED 04/24/2019 MARICEL RHOADES Ot F41.9 ANXIETY DISORDER, UNSPECIFIED 04/24/2019 BERNMARICEL CHE Ot F60.9 PERSONALITY DISORDER, UNSPECIFIED 04/24/2019 BERNREY CHEIS Ot F90.9 ATTENTION-DEFICIT HYPERACTIVITY DISORDER 04/24/2019 BERNREY CHEIS Ot F91.3 OPPOSITIONAL DEFIANT DISORDER 04/24/2019 BERNOTREYIS Ot R42 DIZZINESS AND GIDDINESS 04/24/2019 BERNOTREYIS Ot R55 SYNCOPE AND COLLAPSE 04/24/2019 BERNREY CHEIS Ot Z77.22 CNTCT W AND EXPSR TO ENVIRON TOBACCO SMO 07/13/2019 LULU FRY DO Ot F17.210 NICOTINE DEPENDENCE, CIGARETTES, UNCOMPL 07/13/2019 LULU FRY DO Ot F31.9 BIPOLAR DISORDER, UNSPECIFIED 07/13/2019 LULU FRY DO Ot F41.9 ANXIETY DISORDER, UNSPECIFIED 07/13/2019 LULU FRY DO Ot F60.9 PERSONALITY DISORDER, UNSPECIFIED 07/13/2019 ANG LULU DESOUZA Ot F90.9 ATTENTION-DEFICIT HYPERACTIVITY DISORDER 07/13/2019 ANG LULU DESOUZA Ot F91.3 OPPOSITIONAL DEFIANT DISORDER 07/13/2019 ANG LULU DESOUZA Ot H65.93 UNSPECIFIED NONSUPPURATIVE OTITIS MEDIA, 07/13/2019 ANG LULU DESOUZA Ot R42 DIZZINESS AND GIDDINESS 07/13/2019 ANG LULU DESOUZA Ot Z79.51 [employer] [place] (CURRENT) USE OF INHALED STERO 07/13/2019 LULU FRY DO Ot Z79.52 LONG-TERM (CURRENT) USE OF SYSTEMIC STER 07/13/2019 ANG LULU DESOUZA Ot Z98.51 TUBAL LIGATION STATUS Procedures There is no data. Results Test Result Range Complete blood count (CBC) with automate d white blood cell (WBC) differential - 04/16/19 21:25 Blood leukocytes automated count (number/volume) 9.6 10*3/uL 4.3-11.0 Blood erythrocytes automated count (number/volume) 4.69 10*6/uL 4.35-5.85 Venous blood hemoglobin measurement (mass/volume) 13.2 g/dL 11.5-16.0 Blood hematocrit (volume fraction) 40 % 35-52 Automated erythrocyte mean corpuscular volume 85 [ foz_us] 80-99 Automated erythrocyte mean corpuscular h emoglobin (mass per erythrocyte) 28 pg 25-34 Automated erythrocyte mean corpuscular h emoglobin concentration measurement (mass/volume) 33 g/dL 32-36 Automated erythrocyte distribution width ratio 14. 5 % 10.0- 14.5 Automated blood platelet count (count/volume) 317 10*3/uL 130-400 Automated blood platelet mean volume measurement 10.7 [foz_us] 7.4-10.4 Automated blood neutrophils/100 leukocytes 58 % 42-75 Automated blood lymphocytes/100 leukocytes 33 % 12-44 Blood monocytes/100 leukocytes 8 % 0-12 Automated blood eosinophils/100 leukocytes 2 % 0-10 Automated blood basophils/100 leukocytes 0 % 0-10 Blood neutrophils automated count (number/volume) 5.6 10*3 1.8-7.8 Blood lymphocytes automated count (number/volume) 3.2 10*3 1.0-4.0 Blood monocytes automated count (number/volume) 0. 7 10*3 0.0-1.0 Automated eosinophil count 0.2 10*3/uL 0 .0-0.3 Automated blood basophil count (count/volume) 0.0 10*3/uL 0.0-0.1 Comprehensive metabolic panel - 04/16/19 21:25 Serum or plasma sodium measurement (moles/volume) 139 mmol/L 135-145 Serum or plasma potassium measurement (moles/volume) 3.9 mmol/L 3.6-5.0 Serum or plasma chloride measurement (moles/volume) 105 mmol/L 98-107 Carbon dioxide 20 mmol/L 21-32 Serum or plasma anion gap determination (moles/volume) 14 mmol/L 5-14 Serum or plasma urea nitrogen measurement (mass/volume ) 16 mg/dL 7-18 Serum or plasma creatinine measurement (mass/volume) 0.84 mg/dL 0.60-1.30 Serum or plasma urea nitrogen/creatinine mass ratio 19 NRG Serum or plasma creatinine measurement w ith calculation of estimated glomerular filtration rate > NRG Serum or plasma glucose measurement (mass/volume) 92 mg/dL 70-105 Serum or plasma calcium measurement (mass/volume) 10.5 mg/dL 8.5-10.1 Serum or plasma total bilirubin measurement (mass/volu me) 0.1 mg/dL 0.1-1.0 Serum or plasma alkaline phosphatase yasir surement (enzymatic activity/volume) 52 U/L 40-136 Serum or plasma aspartate aminotransfera se measurement (enzymatic activity/volume) 13 U/L 5-34 Serum or plasma alanine aminotransferase measurement (enzymatic activity/volume) 13 U/L 0-55 Serum or plasma protein measurement (mass/volume) 7.6 g/dL 6.4-8.2 Serum or plasma albumin measurement (mass/volume) 4.4 g/dL 3.2-4.5 CALCIUM CORRECTED 10.2 mg/dL 8.5-10.1 Magnesium - 04/16/19 21:25 Magnesium 2.2 mg/dL 1.8-2.4 PT panel in platelet poor plasma by coag ulation assay - 04/16/19 21:25 Prothrombin time (PT) in platelet poor plasma by coagu lation assay 12.1 s 12.2-14.7 INR in platelet poor plasma or blood by coagulation as say 0.9 0.8-1.4 Activated partial thromboplastin time (a PTT) in platelet poor plasma bycoagulation assay - 04/16/19 21:25 Activated partial thromboplastin time (a PTT) in platelet poor plasma bycoagulation assay 31 s 24-35 Serum or plasma thyrotropin measurement by detection limit <=0.05 miu/l (units/volume) - 04/16/19 21:25 Serum or plasma thyrotropin measurement by detection limit <=0.05 miu/l (units/volume) 1.44 u[iU]/mL 0.35-4.94 Urine beta human chorionic gonadotropin (hCG) measurement - 04/16/19 21:53 Urine beta human chorionic gonadotropin (hCG) measurem ent NEGATIVE NEGATIVE Complete urinalysis with reflex to cultu re - 04/16/19 21:53 Urine color determination YELLOW NRG Urine clarity determination CLEAR NR G Urine pH measurement by test strip 7 5-9 Specific gravity of urine by test strip 1.005 1.016-1.022 Urine protein assay by test strip, semi-quantitative NEGATIVE NEGATIVE Urine glucose detection by automated test strip NE GATIVE NEGATIVE Erythrocytes detection in urine sediment by light micr oscopy NEGATIVE NEGATIVE Urine ketones detection by automated test strip NE GATIVE NEGATIVE Urine nitrite detection by test strip NEGATIVE NEGATIVE Urine total bilirubin detection by test strip NEGA TIVE NEGATIVE Urine urobilinogen measurement by automated test strip (mass/volume) NORMAL NORMAL Urine leukocyte esterase detection by dipstick NEG ATIVE NEGATIVE Automated urine sediment erythrocyte cou nt by microscopy (number/high power field) NONE NRG Automated urine sediment leukocyte count by microscopy (number/high power field) NONE NRG Bacteria detection in urine sediment by light microsco py NEGATIVE NRG Squamous epithelial cells detection in u rine sediment by light microscopy 0-2 NRG Crystals detection in urine sediment by light microsco py NONE NRG Casts detection in urine sediment by light microscopy NONE NRG Mucus detection in urine sediment by light microscopy NEGATIVE NRG Complete urinalysis with reflex to culture NO NRG TSH w/ FREE T4 - 06/04/19 12:31 TSH 1.21 mIU/L NRG T4, FREE 0.9 ng/dL 0.8-1.8 CMP - 06/04/19 12:31 GLUCOSE 78 mg/dL 65-99 UREA NITROGEN (BUN) 8 mg/dL 7-25 CREATININE 0.75 mg/dL 0.50-1.10 eGFR NON-AFR. [place] 97 mL/min/1.73m2 > OR = 60 eGFR 112 mL/min/1.73m2 > OR = 60 BUN/CREATININE RATIO NOT APPLICABLE (calc) 6-22 SODIUM 137 mmol/L 135-146 POTASSIUM 4.2 mmol/L 3.5-5.3 CHLORIDE 105 mmol/L 98-110 CARBON DIOXIDE 26 mmol/L 20-32 CALCIUM 9.6 mg/dL 8.6-10.2 PROTEIN, TOTAL 6.4 g/dL 6.1-8.1 ALBUMIN 4.1 g/dL 3.6-5.1 GLOBULIN 2.3 g/dL (calc) 1.9-3.7 ALBUMIN/GLOBULIN RATIO 1.8 (calc) 1.0-2. 5 BILIRUBIN, TOTAL 0.4 mg/dL 0.2-1.2 ALKALINE PHOSPHATASE 62 U/L 33-115 AST 17 U/L 10-30 ALT 12 U/L 6-29 CBC - 06/04/19 12:31 WHITE BLOOD CELL COUNT 8.3 Thousand/uL 3 .8-10.8 RED BLOOD CELL COUNT 4.71 Million/uL 3.8 0-5.10 HEMOGLOBIN 12.9 g/dL 11.7-15.5 HEMATOCRIT 39.5 % 35.0-45.0 MCV 83.9 fL 80.0-100.0 MCH 27.4 pg 27.0-33.0 MCHC 32.7 g/dL 32.0-36.0 RDW 14.1 % 11.0-15.0 PLATELET COUNT 291 Thousand/uL 140-400 MPV 10.9 fL 7.5-12.5 ABSOLUTE NEUTROPHILS 5461 cells/uL 1500- 7800 ABSOLUTE LYMPHOCYTES 2150 cells/uL 850-3 900 ABSOLUTE MONOCYTES 556 cells/uL 200-950 ABSOLUTE EOSINOPHILS 100 cells/uL 15-500 ABSOLUTE BASOPHILS 33 cells/uL 0-200 NEUTROPHILS 65.8 % NRG LYMPHOCYTES 25.9 % NRG MONOCYTES 6.7 % NRG EOSINOPHILS 1.2 % NRG BASOPHILS 0.4 % NRG Complete blood count (CBC) with automate d white blood cell (WBC) differential - 07/13/19 19:15 Blood leukocytes automated count (number/volume) 8.1 10*3/uL 4.3-11.0 Blood erythrocytes automated count (number/volume) 4.67 10*6/uL 4.35-5.85 Venous blood hemoglobin measurement (mass/volume) 12.9 g/dL 11.5-16.0 Blood hematocrit (volume fraction) 40 % 35-52 Automated erythrocyte mean corpuscular volume 85 [ foz_us] 80-99 Automated erythrocyte mean corpuscular h emoglobin (mass per erythrocyte) 28 pg 25-34 Automated erythrocyte mean corpuscular h emoglobin concentration measurement (mass/volume) 32 g/dL 32-36 Automated erythrocyte distribution width ratio 14. 8 % 10.0- 14.5 Automated blood platelet count (count/volume) 315 10*3/uL 130-400 Automated blood platelet mean volume measurement 10.6 [foz_us] 7.4-10.4 Automated blood neutrophils/100 leukocytes 73 % 42-75 Automated blood lymphocytes/100 leukocytes 19 % 12-44 Blood monocytes/100 leukocytes 6 % 0-12 Automated blood eosinophils/100 leukocytes 1 % 0-10 Automated blood basophils/100 leukocytes 0 % 0-10 Blood neutrophils automated count (number/volume) 5.9 10*3 1.8-7.8 Blood lymphocytes automated count (number/volume) 1.5 10*3 1.0-4.0 Blood monocytes automated count (number/volume) 0. 5 10*3 0.0-1.0 Automated eosinophil count 0.1 10*3/uL 0 .0-0.3 Automated blood basophil count (count/volume) 0.0 10*3/uL 0.0-0.1 PT panel in platelet poor plasma by coag ulation assay - 07/13/19 19:15 Prothrombin time (PT) in platelet poor plasma by coagu lation assay 12.2 s 12.2-14.7 INR in platelet poor plasma or blood by coagulation as say 0.9 0.8-1.4 Activated partial thromboplastin time (a PTT) in platelet poor plasma bycoagulation assay - 07/13/19 19:15 Activated partial thromboplastin time (a PTT) in platelet poor plasma bycoagulation assay 31 s 24-35 Serum or plasma choriogonadotropin (preg andrae test) detection - 07/13/19 19:15 Serum or plasma choriogonadotropin ( test) de tection NEGATIVE NEGATIVE Serum or plasma thyrotropin measurement by detection limit <=0.05 miu/l (units/volume) - 07/13/19 19:15 Serum or plasma thyrotropin measurement by detection limit <=0.05 miu/l (units/volume) 1.26 u[iU]/mL 0.35-4.94 Comprehensive metabolic panel - 07/13/19 19:15 Serum or plasma sodium measurement (moles/volume) 141 mmol/L 135-145 Serum or plasma potassium measurement (moles/volume) 3.9 mmol/L 3.6-5.0 Serum or plasma chloride measurement (moles/volume) 106 mmol/L 98-107 Carbon dioxide 21 mmol/L 21-32 Serum or plasma anion gap determination (moles/volume) 14 mmol/L 5-14 Serum or plasma urea nitrogen measurement (mass/volume ) 13 mg/dL 7-18 Serum or plasma creatinine measurement (mass/volume) 0.80 mg/dL 0.60-1.30 Serum or plasma urea nitrogen/creatinine mass ratio 16 NRG Serum or plasma creatinine measurement w ith calculation of estimated glomerular filtration rate > NRG Serum or plasma glucose measurement (mass/volume) 132 mg/dL 70-105 Serum or plasma calcium measurement (mass/volume) 9.7 mg/dL 8.5-10.1 Serum or plasma total bilirubin measurement (mass/volu me) 0.2 mg/dL 0.1-1.0 Serum or plasma alkaline phosphatase yasir surement (enzymatic activity/volume) 55 U/L 40-136 Serum or plasma aspartate aminotransfera se measurement (enzymatic activity/volume) 13 U/L 5-34 Serum or plasma alanine aminotransferase measurement (enzymatic activity/volume) 10 U/L 0-55 Serum or plasma protein measurement (mass/volume) 7.2 g/dL 6.4-8.2 Serum or plasma albumin measurement (mass/volume) 4.2 g/dL 3.2-4.5 CALCIUM CORRECTED 9.5 mg/dL 8.5-10.1 Magnesium - 07/13/19 19:15 Magnesium 1.8 mg/dL 1.6-2.4 Serum or plasma troponin i.cardiac measu rement (mass/volume) - 07/13/19 19:15 Serum or plasma troponin i.cardiac measurement (mass/v olume) < ng/mL <0.028 Serum or plasma ethanol measurement (mas s/volume) - 07/13/19 19:15 Serum or plasma ethanol measurement (mass/volume) < mg/dL <10 Complete urinalysis with reflex to cultu re - 07/13/19 19:27 Urine color determination YELLOW NRG Urine clarity determination CLEAR NR G Urine pH measurement by test strip 6 5-9 Specific gravity of urine by test strip 1.015 1.016-1.022 Urine protein assay by test strip, semi-quantitative NEGATIVE NEGATIVE Urine glucose detection by automated test strip NE GATIVE NEGATIVE Erythrocytes detection in urine sediment by light micr oscopy NEGATIVE NEGATIVE Urine ketones detection by automated test strip NE GATIVE NEGATIVE Urine nitrite detection by test strip NEGATIVE NEGATIVE Urine total bilirubin detection by test strip NEGA TIVE NEGATIVE Urine urobilinogen measurement by automated test strip (mass/volume) NORMAL NORMAL Urine leukocyte esterase detection by dipstick NEG ATIVE NEGATIVE Automated urine sediment erythrocyte cou nt by microscopy (number/high power field) [HPF] NRG Automated urine sediment leukocyte count by microscopy (number/high power field) [HPF] NRG Bacteria detection in urine sediment by light microsco py TRACE NRG Squamous epithelial cells detection in u rine sediment by light microscopy 2-5 NRG Crystals detection in urine sediment by light microsco py NONE NRG Casts detection in urine sediment by light microscopy NONE NRG Mucus detection in urine sediment by light microscopy NEGATIVE NRG Complete urinalysis with reflex to culture NO NRG Urine drug screening test - 07/13/19 19: 27 Urine phencyclidine detection by screening method NEGATIVE NEGATIVE Urine benzodiazepines detection by screening method NEGATIVE NEGATIVE Urine cocaine detection NEGATIVE NEGATI VE Urine amphetamines detection by screening method N EGATIVE NEGATIVE Urine methamphetamine detection by screening method NEGATIVE NEGATIVE Urine cannabinoids detection by screening method N EGATIVE NEGATIVE Urine opiates detection by screening method NEGATI VE NEGATIVE Urine barbiturates detection NEGATIVE N EGATIVE Screening urine tricyclic antidepressants detection NEGATIVE NEGATIVE Urine methadone detection by screening method NEGA TIVE NEGATIVE Urine oxycodone detection NEGATIVE NEGA TIVE Urine propoxyphene detection NEGATIVE N EGATIVE Complete urinalysis with reflex to cultu re - 11/03/19 08:20 Urine color determination YELLOW NRG Urine clarity determination CLOUDY NR G Urine pH measurement by test strip 6.0 5-9 Specific gravity of urine by test strip 1.025 1.016-1.022 Urine protein assay by test strip, semi-quantitative 2+ NEGATIVE Urine glucose detection by automated test strip NE GATIVE NEGATIVE Erythrocytes detection in urine sediment by light micr oscopy 3+ NEGATIVE Urine ketones detection by automated test strip NE GATIVE NEGATIVE Urine nitrite detection by test strip NEGATIVE NEGATIVE Urine total bilirubin detection by test strip NEGA TIVE NEGATIVE Urine urobilinogen measurement by automated test strip (mass/volume) 0.2 mg/dL < = 1.0 Urine leukocyte esterase detection by dipstick 2+ NEGATIVE Automated urine sediment erythrocyte cou nt by microscopy (number/high power field) [HPF] NRG Automated urine sediment leukocyte count by microscopy (number/high power field) [HPF] NRG Bacteria detection in urine sediment by light microsco py FEW NRG Squamous epithelial cells detection in u rine sediment by light microscopy 2-5 NRG Crystals detection in urine sediment by light microsco py NONE NRG Casts detection in urine sediment by light microscopy NONE NRG Mucus detection in urine sediment by light microscopy NEGATIVE NRG Complete urinalysis with reflex to culture YES NRG Bacterial urine culture - 11/03/19 08:20 Bacterial urine culture [id number] NRG COLONY COUNT >100,000/ML NRG FTX;REPORTABLE SEE COMMENTS NRG FREE TEXT ENTRY 2 PRELIM RAPID ID TEST AT [facility] 11/04 13:00 NRG FREE TEXT ENTRY 3 RML REPORTED ID 11/04 14:05 NRG Encounters ACCT No. Visit Date/Time Discharge Status Pt. Type Provider Facility Loc./Unit Complaint [id number] 11/17/2019 08:00:00 11/17/2019 23:59: 59 [facility] Outpatient JESSICA SO [facility] [place] [id number] 06/04/2019 12:20:00 Document Registration [id number] 11/03/2019 08:03:00 08:52:00 DIS Emergency LULU FRY DO a [facility] ER CRAMPING;BURNING/ITCHIN G WITH URINATION [id number] 10/29/2019 08:45:00 23:59:59 CLS Preadmit JUDAHJESSICA APRN [facility] RAD VERTIGO [id number] 07/21/2019 09:30:00 23:59:59 CLS Preadmit JESSICA SO HEM MARKER [facility] RAD VERTIGO [id number] 07/13/2019 18:20:00 22:25:00 DIS Emergency LULU FRY DO [facility] ER DIZZINESS [id number] 04/16/2019 21:11:00 23:05:00 DIS Emergency MARICEL RHOADES [facility] ER DIZZY
[2019-12-06] MEDS ORDERED: ONDANSETRON 4 MG/2 ML (SDV) Z0FRAN ONE (16:13)
[2019-12-06] MEDS ORDERED: ONDANSETRON 4 MG/2 ML (SDV) Z0FRAN IVP ONE (16:45)
[2019-12-06 16:46] LABS: BASOPHILS % (AUTO) 0 % (0-10); EOSINOPHILS # (AUTO) 0.1 10^3/uL (0.0-0.3); EOSINOPHILS % (AUTO) 1 % (0-10); HEMATOCRIT 40 % (35-52); HEMOGLOBIN 12.8 G/DL (11.5-16.0); LYMPHOCYTES # (AUTO) 2.1 X 10^3 (1.0-4.0); LYMPHOCYTES % (AUTO) 24 % (12-44); MEAN CORPUSCULAR HEMOGLOBIN 28 PG (25-34); MEAN CORPUSCULAR HGB CONC 32 G/DL (32-36); MEAN CORPUSCULAR VOLUME 87 FL (80-99); MEAN PLATELET VOLUME 10.5 FL (7.4-10.4); MONOCYTES # (AUTO) 0.7 X 10^3 (0.0-1.0); MONOCYTES % (AUTO) 8 % (0-12); NEUTROPHILS # (AUTO) 5.7 X 10^3 (1.8-7.8); NEUTROPHILS % (AUTO) 67 % (42-75); PLATELET COUNT 286 10^3/uL (130-400); RED CELL DISTRIBUTION WIDTH 14.1 % (10.0-14.5); WHITE BLOOD COUNT 8.6 10^3/uL (4.3-11.0)
--- NOTE | 2019-12-06 16:47 | ED General ---
General Chief Complaint: Respiratory Problems Stated Complaint: NAUSEA, SOB, COUGH Nursing Triage Note: pt presents to ed with complaints of soa x 3 days. n/v x 1 day. pt denies any recent travel. 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 Denies any fevers now or at any time. Timing/Duration: 1-2 Days Severity: Moderate Associated Systoms: Cough, Nausea/Vomiting, Shortness of Air Allergies and Home Medications Allergies Coded Allergies: No Known Drug Allergies (Unverified , 04/16/19) Home Medications Azelastine HCl 137 Mcg/0.137 Ml [place].pump, 137 MCG NS BID Prescribed by: LULU FRY on 07/13/192044 Nitrofurantoin Monohyd/M-Cryst 100 Mg Capsule, 100 MG PO BID Prescribed by: LULU FRY on 11/03/19 0845 Phenazopyridine HCl 200 Mg Tablet, 1 TAB PO TID Prescribed by: LULU FRY on 11/03/19 0845 Sertraline HCl 100 Mg Tablet, 100 MG PO DAILY, (Reported) Patient Home Medication List Home Medication List Reviewed: Yes Review of Systems Review of Systems Constitutional: see HPI; No chills, No fever EENTM: see HPI Respiratory: no symptoms reported Cardiovascular: no symptoms reported Genitourinary: no symptoms reported Musculoskeletal: no symptoms reported Skin: no symptoms reported Psychiatric/Neurological: No Symptoms Reported Hematologic/Lymphatic: No Symptoms Reported Past Whirtpm-Iccfbz-Elpqow Hx Patient Social History Alcohol Use: Denies Use Recreational Drug Use: No Smoking Status: Current Everyday Smoker Type Used: Cigarettes 2nd Hand Smoke Exposure: Yes Recent Foreign Travel: No Contact w/Someone Who Travel: No Recent Infectious Disease Expo: No Recent Hopitalizations: No Physical Abuse: No Sexual Abuse: No Mistreated: No Fear: No Seasonal Allergies Seasonal Allergies: No Past Medical History Surgeries: Yes ( X 3) Section, Tubal Ligation Respiratory: No Cardiac: No Neurological: Yes Vertigo Reproductive Disorders: Yes Female Reproductive Disorders: Menstrual Problems 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 oz. 73.759625as; 45.00 BMI Method:Stated General Appearance: No Apparent Distress, WD/WN Eyes: Bilateral Eye Normal Inspection, Bilateral Eye PERRL HEENT: PERRL/EOMI, TMs Normal, Normal ENT Inspection Neck: Full Range of Motion, Normal Inspection Respiratory: No Accessory Muscle Use, No Respiratory Distress, Other (no accessory muscle use lungs are clear to auscultation oxygen 98% room air) Cardiovascular: Regular Rate, Rhythm, Normal Peripheral Pulses Gastrointestinal: Non Tender, Soft Extremity: Normal Capillary Refill, Normal Inspection Neurologic/Psychiatric: Alert, Oriented x3 Skin: Normal Color, Warm/Dry Progress/Results/Core Measures Suspected Sepsis Recent Fever Within 48 Hours: Yes Infection Criteria Present: Suspected New Infection New/Unexplained Altered Menta: No Sepsis Screen: No Definite Risk SIRS Temperature: Pulse: 86 Respiratory Rate: 18 Laboratory Tests 12/06/19 16:27: White Blood Count 8.6 Blood Pressure 113 /76 Mean: 88 Laboratory Tests 12/06/19 16:27: Creatinine 0.80, Platelet Count 286, Total Bilirubin 0.2 Results/Orders Lab Results Laboratory Tests Test 12/06/19 16:27 12/06/19 17:00 Range/Units White Blood Count 8.6 4.3-11.0 10^3/uL Red Blood Count 4.65 4.35-5.85 10^6/uL Hemoglobin 12.8 11.5-16.0 G/DL Hematocrit 40 35-52 % Mean Corpuscular Volume 87 80-99 FL Mean Corpuscular Hemoglobin 28 25-34 PG Mean Corpuscular Hemoglobin Concent 32 32-36 G/DL Red Cell Distribution Width 14.1 10.0-14.5 % Platelet Count 286 130-400 10^3/uL Mean Platelet Volume 10.5 H 7.4-10.4 FL Neutrophils (%) (Auto) 67 42-75 % Lymphocytes (%) (Auto) 24 12-44 % Monocytes (%) (Auto) 8 0-12 % Eosinophils (%) (Auto) 1 0-10 % Basophils (%) (Auto) 0 0-10 % Neutrophils # (Auto) 5.7 1.8-7.8 X 10^3 Lymphocytes # (Auto) 2.1 1.0-4.0 X 10^3 Monocytes # (Auto) 0.7 0.0-1.0 X 10^3 Eosinophils # (Auto) 0.1 0.0-0.3 10^3/uL Basophils # (Auto) 0.0 0.0-0.1 10^3/uL Sodium Level 137 135-145 MMOL/L Potassium Level 4.0 3.6-5.0 MMOL/L Chloride Level 107 98-107 MMOL/L Carbon Dioxide Level 20 L 21-32 MMOL/L Anion Gap 10 5-14 MMOL/L Blood Urea Nitrogen 12 7-18 MG/DL Creatinine 0.80 0.60-1.30 MG/DL Estimat Glomerular Filtration Rate > 60 BUN/Creatinine Ratio 15 Glucose Level 108 H 70-105 MG/DL Calcium Level 9.5 8.5-10.1 MG/DL Corrected Calcium 9.3 8.5-10.1 MG/DL Total Bilirubin 0.2 0.1-1.0 MG/DL Aspartate Amino Transf (AST/SGOT) 19 5-34 U/L Alanine Aminotransferase (ALT/SGPT) 16 0-55 U/L Alkaline Phosphatase 51 40-136 U/L Lactate Dehydrogenase 198 125-220 U/L C-Reactive Protein High Sensitivity 0.13 0.00-0.50 MG/DL Total Protein 7.0 6.4-8.2 GM/DL Albumin 4.2 3.2-4.5 GM/DL Lipase 28 8-78 U/L Group A Streptococcus Screen NEGATIVE NEGATIVE Micro Results Microbiology 12/06/19 Influenza Types A,B Antigen (SHONDA) - Final, Complete My Orders Orders - PEYTON MCKENNA [employer] Cbc With Automated Diff (12/06/19 16:38) Comprehensive Metabolic Panel (12/06/19 16:38) Hs C Reactive Protein (12/06/19 16:38) Lipase (12/06/19 16:38) Ua Culture If Indicated (12/06/19 16:38) Ed Iv/Invasive Line Start (12/06/19 16:38) Ondansetron Injection (Zofran Injectio (12/06/19 16:45) Rapid Strep A Screen (12/06/19 16:38) Influenza A And B Antigens (12/06/19 16:38) LDH (12/06/19 16:40) Procalcitonin (Pct) (12/06/19 16:40) Chest 1 View, Ap/Pa Only (12/06/19 17:03) Medications Given in ED Current Medications Medications Dose Ordered Sig/Sulema Route Start Time Stop Time Status Last Admin Dose Admin Ondansetron HCl 8 mg ONCE ONCE IVP 12/06/19 16:45 12/06/19 16:46 DC 12/06/19 16:30 8 MG Vital Signs/I&O 12/06/19 16:22 Temp 36.7 Pulse 86 Resp 18 B/P (MAP) 113/76 (88) Pulse Ox 98 Capillary Refill : Less Than 3 Seconds Blood Pressure Mean: 88 Departure Impression Primary Impression: Viral syndrome Disposition: 01 HOME, SELF-CARE Condition: Stable Departure-Patient Inst. Decision time for Depature: 17:18 Referrals: JESSICA SO APRN (PCP/Family) Primary Care Physician Patient Instructions: Viral Syndrome (DC) Add. Discharge Instructions: 1. Tylenol for pain or fever control 2. Return to ER for any concerns 3. Nausea medication as needed 4. Follow-up with your doctor next week. Go home and quarantine for either 14 days or until you have been without any fever above 100 and no use of Tylenol or Motrin for 72 hours All discharge instructions reviewed with patient and/or family. Voiced understanding. Work/School Note: Work Release Form Date Seen in the Emergency Department: Dec 06, 2019 Return to Work: Dec 13, 2019 PEYTON MCKENNA APRN Dec 06, 2019 16:47
[2019-12-06 16:59] LABS: ALANINE AMINOTRANSFERASE 16 U/L (0-55); ALBUMIN 4.2 GM/DL (3.2-4.5); ALKALINE PHOSPHATASE 51 U/L (40-136); BILIRUBIN,TOTAL 0.2 MG/DL (0.1-1.0); BUN/CREATININE RATIO 15; CALCIUM 9.5 MG/DL (8.5-10.1); CARBON DIOXIDE 20 MMOL/L (21-32); CHLORIDE 107 MMOL/L (98-107); GFR ESTIMATED > 60; GLUCOSE 108 MG/DL (70-105); LIPASE 28 U/L (8-78); SODIUM 137 MMOL/L (135-145)
[2019-12-06 17:13] LABS: BILIRUBIN,URINE NEGATIVE (NEGATIVE); CLARITY,URINE CLEAR; COLOR,URINE YELLOW; GLUCOSE, URINE (UA) NEGATIVE (NEGATIVE); KETONES,URINE NEGATIVE (NEGATIVE); LEUKOCYTE ESTERASE ,URINE NEGATIVE (NEGATIVE); NITRITE,URINE NEGATIVE (NEGATIVE); PH,URINE 7.5 (5-9); PROTEIN,URINE NEGATIVE (NEGATIVE)
[2019-12-06 17:26] LABS: AMORPHOUS SEDIMENT,UR LARGE AMOR PHOSPHATE /LPF; BACTERIA,URINE NEGATIVE /HPF; SQUAMOUS EPITHELIAL CELL,UR RARE /HPF
--- NOTE | 2019-12-06 17:34 | Diagnostic Imaging Report ---
EXAMINATION: Chest 1 view. HISTORY: Shortness of breath for 3 days. Nausea and vomiting. COMPARISON: Chest radiograph on 07/13/2019. FINDINGS: The lung volumes are normal. No focal consolidation is seen. No large pleural effusion or pneumothorax is seen. The cardiomediastinal silhouette is normal in size and contour. No acute osseous abnormality is seen. IMPRESSION: No acute pleuroparenchymal process. Dictated by: Dictated on workstation # [id number]
[2019-12-06 18:15] VITALS: BP 115/78
== END 2019-12-06 18:15 | disposition home or self-care (01) ==
LOC: EDUNIT# 16:06 → ER 16:08
DX: B34.9 Viral infection, unspecified (principal); F17.210 Nicotine dependence, cigarettes, uncomplicated
CPT/HCPCS: 36415; 71045; 80053; 81000; 83615; 83690; 84145; 85025; 86141; 87430; 87804